=== PATIENT | male | born 1985 | race African-American/Black ===

== ENCOUNTER 2016-12-13 09:30 | Emergency (ER) | payer SELFPAY ==
[~2016-12-13] VITALS: Ht 172.7 cm; Wt 100.0 kg
[~2016-12-13 09:30] MED LIST: LEVA750T PO; LISI5 PO; LORTA5 PO
[2016-12-13 09:32] VITALS: BP 129/86; PULSE 71; RESP 15; TEMP 97.9; O2SAT 98
--- NOTE | 2016-12-13 09:58 | PD ---
HPI Chief Complaint: Oral / Dental Pain or Problem Time Seen by Provider: 09:55 Travel History International Travel<30 days: No Contact w/Intl Traveler<30days: No Traveled to known affect area: No History of Present Illness HPI Patient is a 31-year-old male with chief complaint of dental pain. As the left lower molar. Present for one year intermittently. Current "flare "present for one week. He'll he has some swelling on the outside of the left side of the face only. This is intermittent. Is using NSAIDs with minimal relief. He denies any masses, lymphadenopathy, fever, difficulty swallowing or breathing. He has not seen a dentist in several years. History Past Medical Histgory Hx Cancer: No Social History Alcohol Use: No Tobacco Use: Yes (11/19 PPD) Allergies-Medications (Allergen,Severity, Reaction): Coded Allergies: No Known Allergies (Verified , 12/13/16) Reported Meds & Prescriptions Reported Meds & Active Scripts Active Review of Systems General / Constitutional: No: Fever HENT: Positive: Dental Difficulties, No: Neck Stiffness, Neck Pain, Masses, Gingival Bleeding, Earache, Other (no discharge from the teeth or gums) Respiratory: No: Shortness of Breath, Stridor Hematologic/Lymphatic: No: Lymph Node Enlargement Physical Exam Narrative GENERAL: Well-developed and well-nourished adult male in no acute distress. SKIN: Warm and dry. Good turgor without tenting. HEAD: Normocephalic and atraumatic. EYES: PERRL bilaterally, 5mm. EOMI bilaterally. No injection or icterus present. No proptosis. Lids without edema or erythema. ENT: Tooth #18 has multiple caries on the buccal side with approximately 1\\6 of the tooth missing. The tooth is not loose. Tender to percussion. No edema, discharge or erythema. No buccal or sublingual masses. Buccal mucosa pink and moist. No appreciable facial edema. Oropharynx free of erythema, tonsillar hypertrophy, masses, swelling, asymmetry and exudates. Uvula midline and airway patent. NECK: Supple, no midline tenderness, crepitus or step-offs. Trachea midline, no JVD. No induration or masses palpated. No cervical or facial lymphadenopathy. CARDIOVASCULAR: Regular rate and rhythm without murmurs, rubs, clicks or gallops. RESPIRATORY: Clear to auscultation bilaterally with symmetrical rise and fall, no distress or use of accessory muscles. Speaks in full sentences. No stridor , tripoding or drooling. MUSCULOSKELETAL: No gait disturbances. Patient freely moving all four extremities spontaneously. Extremities without clubbing, cyanosis, or edema. No obvious deformities. NEUROLOGIC: CN II-XII grossly intact. Awake and alert. Motor grossly within normal limits. Normal speech. PSYCHIATRIC: Appropriate mood and affect; insight and judgment normal. Data Data Last Documented VS Vital Signs Date Time Temp Pulse Resp B/P Pulse Ox O2 Delivery O2 Flow Rate FiO2 12/13/16 09:32 97.9 71 15 129/86 98 MDM Medical Screen Exam Complete: Yes Emergency Medical Condition: No Narrative Course Patient is a 31-year-old male with dental pain for 1 week secondary to caries. This tooth is bothering him intermittently for one year but he has failed to see dentist. He is afebrile, nontoxic and has no systemic complaints. There is no evidence of infection on exam. There is no evidence of airway compromise or mass. Recommend patient continue OTC NSAIDs and follow up with a dentist. A medical screening exam was performed: At the time of evaluation the presenting medical condition was determined not to be of an emergent nature. The patient was given the option of receiving additional care, but declined. Patient was given options for additional community resources from which to obtain care. The Patient Has Been advised to seek medical attention for their presenting complaint. The patient has been advised to return to the ER at any time if an emergent condition develops. Primary Impression: Encounter for medical screening examination Condition: Stable Glen Tipton III Dec 13, 2016 09:58
== END 2016-12-13 10:26 | disposition left against medical advice (07) ==
LOC: NEPB 09:30
DX: K08.89 Other specified disorders of teeth and supporting structures (principal); F17.200 Nicotine dependence, unspecified, uncomplicated
CPT/HCPCS: 99281

== ENCOUNTER 2018-01-30 15:50 | Emergency (ER) | payer SELFPAY ==
[~2018-01-30] VITALS: Ht 172.7 cm; Wt 97.0 kg
[2018-01-30 16:06] VITALS: BP 157/89; PULSE 63; RESP 16; TEMP 97.6; O2SAT 100
[2018-01-30] MEDS ORDERED: ACETAMINOPHEN 500 MG CPLT PO ONE (17:30)
[2018-01-30] MEDS ORDERED: LISINOPRIL 10 MG TAB PO ONE (17:30)
[2018-01-30] MEDS ORDERED: LISI10TA3 PO (17:38)
--- NOTE | 2018-01-30 17:38 | PD ---
HPI Chief Complaint: Headache Time Seen by Provider: 17:05 Travel History International Travel<30 days: No Contact w/Intl Traveler<30days: No Traveled to known affect area: No History of Present Illness HPI This is a 32-year-old male presents emerged from complaining of some dizziness and headache that started this afternoon. He states that similar symptoms and his blood pressure has been high in the past. Is noting his blood pressure medicine for the past 3 months or so. Little bit of congestion and chills. No other obvious infectious symptoms. No other neurologic symptoms. Otherwise been feeling generally well and healthy. History Past Medical History Narrative Medical Hypertension Social History Alcohol Use: No Tobacco Use: Yes (11/19 PPD) Allergies-Medications (Allergen,Severity, Reaction): Coded Allergies: No Known Allergies (Verified Adverse Reaction, Unknown, 01/30/18) Reported Meds & Prescriptions Reported Meds & Active Scripts Active Review of Systems Except as stated in HPI: all other systems reviewed are Neg Physical Exam Narrative GENERAL: Well-appearing young 32-year-old man. SKIN: Focused skin assessment warm/dry. ENT: No nasal bleeding or discharge. Mucous membranes pink and moist. NECK: Trachea midline. No JVD. CARDIOVASCULAR: Regular rate and rhythm. No murmur appreciated. RESPIRATORY: No accessory muscle use. Clear to auscultation. Breath sounds equal bilaterally. GASTROINTESTINAL: Abdomen soft, non-tender, nondistended. Hepatic and splenic margins not palpable. MUSCULOSKELETAL: No obvious deformities. No clubbing. No cyanosis. No edema. NEUROLOGICAL: Awake and alert. No obvious cranial nerve deficits. Motor grossly within normal limits. Normal speech. Data Data Last Documented VS Vital Signs Date Time Temp Pulse Resp B/P (MAP) Pulse Ox O2 Delivery O2 Flow Rate FiO2 01/30/18 17:19 96 Room Air 01/30/18 16:06 97.6 63 16 157/89 (111) Orders Orders Lisinopril (Prinivil) (01/30/18 17:30) Acetaminophen (Tylenol) (01/30/18 17:30) MDM Medical Decision Making Medical Screen Exam Complete: Yes Emergency Medical Condition: Yes Differential Diagnosis Hypertension, headache, SAH, infection, sinusitis, other Narrative Course Medical decision making As well 32 oh male presents to the emergency department with some moderate headache, associated with some elevated blood pressure. Blood pressure is only mildly elevated now. Is feeling better. States symptoms are similar to when he had headache in the past. I do not think is a subarachnoid hemorrhage. He looks otherwise well. Little bit of infectious symptoms. We will plan restart medications, Tylenol, return for worsening symptoms, outpatient follow-up. Diagnosis Primary Impression: Headache Additional Instructions: Take lisinopril as prescribed. Follow-up with her primary physician in 2-3 weeks for repeat evaluation. Return to the emergency department for any new or worsening symptoms. Med/Other Pt SpecificInfo: Prescription(s) given Scripts Lisinopril (Lisinopril) 10 Mg Tab 10 MG PO DAILY, #30 TAB 0 Refills Prov: Shubham Almanza MD 01/30/18 Disposition: 01 DISCHARGE HOME Condition: Stable Shubham Almanza MD Jan 30, 2018 17:38
[2018-01-30 18:01] VITALS: BP 145/85
== END 2018-01-30 18:12 | disposition home or self-care (01) ==
LOC: NEPD 15:50
DX: R51 Headache (principal); I10 Essential (primary) hypertension; F17.200 Nicotine dependence, unspecified, uncomplicated
CPT/HCPCS: 99283